=== PATIENT | female | born 1955 | race Two or more races ===

== ENCOUNTER 2023-09-09 16:27 | Inpatient (IN) | payer MEDICARE, OTHER ==
[~2023-09-09] VITALS: Ht 152.4 cm; Wt 52.0 kg
[2023-09-09] MEDS ORDERED: NITROGLYCERIN 2% (1 GM=INCH) OINTMENT PACKET TP ONE (19:45)
[2023-09-09] MEDS ORDERED: NITROGLYCERIN 0.4 MG SUBLINGUAL TABLET #25 SL ONE (19:45)
[2023-09-09] MEDS ORDERED: ASPIRIN 325 MG TABLET PO ONE (19:45)
[2023-09-09 19:49] LABS: BASOPHILS % (AUTO) 1.8 % (0.0-2.0); EOSINOPHILS % (AUTO) 3.1 % (1.0-6.0); HEMATOCRIT 30.8 % (36-46); HEMOGLOBIN 10.8 g/dL (12.0-16.0); LYMPHOCYTES # (AUTO) 2.1 K/uL (1.0-4.8); LYMPHOCYTES % (AUTO) 38.8 % (22.0-44.0); MEAN CORPUSCULAR HEMOGLOBIN 33.4 pg (26.0-34.0); MEAN CORPUSCULAR VOLUME 96 fL (80-100); MONOCYTES # (AUTO) 0.5 K/uL (0.1-1.0); MONOCYTES % (AUTO) 9.5 % (2.0-9.0); NEUTROPHILS # (AUTO) 2.6 K/uL (1.8-7.7); NEUTROPHILS % (AUTO) 46.8 % (40.0-70.0); PLATELET COUNT (AUTO) 264 K/uL (150-450); RED BLOOD CELL COUNT(AUTO) 3.22 MIL/uL (4.00-5.20); RED CELL DISTRIBUTION WIDTH 12.7 % (11.5-14.5); WHITE BLOOD COUNT (AUTO) 5.5 K/uL (4.5-11.0)
[2023-09-09 19:59] LABS: ANION GAP 9 mmol/L (8-16); CALCIUM, TOTAL 8.8 mg/dL (8.8-10.5); CARBON DIOXIDE 27 mmol/L (22-29); CHLORIDE 97 mmol/L (98-107); CREATININE 0.51 mg/dL (0.60-1.30); GLOMERULAR FILTR. RATE CALC > 60 mL/min (>60); GLUCOSE,RANDOM 80 mg/dL (70-110); POTASSIUM 3.6 mmol/L (3.5-5.1); SODIUM SERUM 133 mmol/L (136-145); UREA NITROGEN, BLOOD 8 mg/dL (7-18)
[2023-09-09 20:04] LABS: ALANINE AMINOTRANSFERASE 18 U/L (12-78); ALBUMIN 3.5 g/dL (3.4-5.0); ALKALINE PHOSPHATASE 53 U/L (46-116); ASPARTATE AMINOTRANSFERASE 26 U/L (15-37); BILIRUBIN,TOTAL 0.3 mg/dL (0.1-1.0); TOTAL PROTEIN, SERUM 6.5 g/dL (6.4-8.2)
[2023-09-09 20:16] LABS: TROPONIN I-HIGH SENSITIVITY 107 ng/L (<51)
[2023-09-09 20:54] LABS: COVID AG,FIA SOURCE NASAL SWAB
[2023-09-09 21:10] LABS: SARS-COV2 (COVID) ANTIGEN,FIA Negative (Negative)
[2023-09-09 21:58] LABS: TROPONIN I-HIGH SENSITIVITY 122 ng/L (<51)
[2023-09-09 23:30] VITALS: BP 136/77; PULSE 56; RESP 19; TEMP 97.8
[2023-09-10] VITALS (8 sets, daily range): BP systolic 109–136; BP diastolic 54–77; PULSE 51–60; RESP 17–20; TEMP 97.7–98.6
[2023-09-10] MEDS ORDERED: ACETAMINOPHEN 325 MG TABLET PO PRN ×2 (01:30→01:45)
[2023-09-10] MEDS ORDERED: MORPHINE SULFATE 2 MG/ML SYRINGE IVP PRN (01:45)
[2023-09-10] MEDS ORDERED: NITROGLYCERIN 0.4 MG SUBLINGUAL TABLET #25 SL PRN (01:45)
[2023-09-10] MEDS ORDERED: ACETAMINOPHEN 500 MG TABLET PO PRN (02:00)
[2023-09-10 07:13] LABS: TROPONIN I-HIGH SENSITIVITY 112 ng/L (<51)
[2023-09-10] MEDS: DOCUSATE SODIUM 100 MG CAPSULE PO SCH (08:00)
[2023-09-10] MEDS: ASPIRIN 81 MG CHEWABLE TABLET PO SCH (08:00)
[2023-09-10] MEDS: AmLODIPine BESYLATE 5 MG TABLET PO SCH (09:00)
[2023-09-10] MEDS ORDERED: SESTAMIBI TC99M/UD ISOTOPE 1 EA INJ INJ ONE ×2 (09:50→12:20)
[2023-09-10] MEDS ORDERED: REGADENOSON 0.4 MG/5 ML PF SYRINGE IVP ONE ×2 (13:00→17:32)
[2023-09-11 01:51] VITALS: BP 112/60; PULSE 54; RESP 20; TEMP 97.7
[2023-09-11 05:32] VITALS: BP 102/51; PULSE 54; RESP 20; TEMP 98
[2023-09-11 06:54] LABS: BASOPHILS % (AUTO) 1.2 % (0.0-2.0); EOSINOPHILS % (AUTO) 2.2 % (1.0-6.0); HEMATOCRIT 34.3 % (36-46); HEMOGLOBIN 12.2 g/dL (12.0-16.0); LYMPHOCYTES # (AUTO) 1.6 K/uL (1.0-4.8); LYMPHOCYTES % (AUTO) 26.5 % (22.0-44.0); MEAN CORPUSCULAR HEMOGLOBIN 34.1 pg (26.0-34.0); MEAN CORPUSCULAR HGB CONC 35.6 G/dL (31.0-37.0); MEAN CORPUSCULAR VOLUME 96 fL (80-100); MONOCYTES # (AUTO) 0.5 K/uL (0.1-1.0); MONOCYTES % (AUTO) 9.2 % (2.0-9.0); NEUTROPHILS # (AUTO) 3.6 K/uL (1.8-7.7); NEUTROPHILS % (AUTO) 60.9 % (40.0-70.0); PLATELET COUNT (AUTO) 295 K/uL (150-450); RED BLOOD CELL COUNT(AUTO) 3.58 MIL/uL (4.00-5.20); RED CELL DISTRIBUTION WIDTH 12.8 % (11.5-14.5); WHITE BLOOD COUNT (AUTO) 5.9 K/uL (4.5-11.0)
[2023-09-11 07:17] LABS: ANION GAP 7 mmol/L (8-16); CARBON DIOXIDE 27 mmol/L (22-29); CHLORIDE 103 mmol/L (98-107); CHOL/HDL RATIO 2.4 (3.9-5.7); CHOLESTEROL 230 mg/dL (131-200); CREATININE 0.56 mg/dL (0.60-1.30); GLOMERULAR FILTR. RATE CALC > 60 mL/min (>60); GLUCOSE,RANDOM 90 mg/dL (70-110); HDL CHOLESTEROL 95 mg/dL (40-60); LDL CHOL (CALC.) 123 mg/dL (0-130); POTASSIUM 4.1 mmol/L (3.5-5.1); SODIUM SERUM 137 mmol/L (136-145); TRIGLYCERIDES 62 mg/dL (15-150); UREA NITROGEN, BLOOD 8 mg/dL (7-18)
[2023-09-11 08:45] VITALS: BP 110/59; PULSE 60; RESP 18; TEMP 97.9
[2023-09-11] MEDS: AmLODIPine BESYLATE 5 MG TABLET PO SCH (09:04)
[2023-09-11] MEDS: DOCUSATE SODIUM 100 MG CAPSULE PO SCH (09:05)
[2023-09-11] MEDS: ASPIRIN 81 MG CHEWABLE TABLET PO SCH (09:05)
[2023-09-11] MEDS ORDERED: AMLO-257 PO (09:50)
[2023-09-11] MEDS ORDERED: ATORVASTATIN CALCIUM 10 MG TABLET PO SCH (10:45)
== END 2023-09-11 14:40 | disposition home health service (06) | DRG 313 ==
LOC: EMS 16:29 → 5N 20:34
PROVIDERS: ADMIT Internal Medicine; ATTEND Internal Medicine
DX: R07.89 Other chest pain (principal); E87.1 Hypo-osmolality and hyponatremia; R79.89 Other specified abnormal findings of blood chemistry; Z20.822 Contact with and (suspected) exposure to COVID-19; G40.909 Epilepsy, unspecified, not intractable, without status epilepticus; E78.5 Hyperlipidemia, unspecified; I10 Essential (primary) hypertension; D64.9 Anemia, unspecified; Z87.891 Personal history of nicotine dependence; Z86.73 Personal history of transient ischemic attack (TIA), and cerebral infarction without residual deficits; Z98.891 History of uterine scar from previous surgery
CPT/HCPCS: 70450; 71045; 78452; 80048; 80053; 80061; 83036; 84484; 85025; 93005; 93306; 99291; A9500; J2785; 36415-L1; 36415-TC